=== PATIENT | male | born 1930 | race Caucasian/White ===

== ENCOUNTER 2017-09-29 14:38 | Emergency (ER) | payer OTHER ==
[~2017-09-29 14:38] MED LIST: DIGO125T87 PO; GABA-529 PO; HYDR-3830 PO; WARF-57 PO; [UNRECOGNIZED DRUG - CODE] PO
== END 2017-09-29 16:10 | disposition home or self-care (01) ==
LOC: EDH 14:38
DX: S91.201A Unspecified open wound of right great toe with damage to nail, initial encounter (principal); X58.XXXA Exposure to other specified factors, initial encounter; Y93.89 Activity, other specified; Y92.89 Other specified places as the place of occurrence of the external cause; Y99.8 Other external cause status

== ENCOUNTER 2017-11-11 08:25 | Day surgery (SDC) | payer OTHER ==
[~2017-11-11] VITALS: Ht 172.7 cm; Wt 65.0 kg
[~2017-11-11 08:25] MED LIST changes: +SODIUM CHLORIDE 0.9% 1000ML 1,000 ML IV ONE
[2017-11-11 10:05] VITALS: BP 113/71
[2017-11-11 11:30] VITALS: BP 98/42
== END 2017-11-11 12:20 | disposition home or self-care (01) ==
LOC: DAH 08:25 → ENDO 08:25
PROVIDERS: ATTEND Internal Medicine
DX: K31.819 Angiodysplasia of stomach and duodenum without bleeding (principal); K31.89 Other diseases of stomach and duodenum; D50.9 Iron deficiency anemia, unspecified; K21.9 Gastro-esophageal reflux disease without esophagitis; I48.91 Unspecified atrial fibrillation; M19.90 Unspecified osteoarthritis, unspecified site; Z79.01 Long term (current) use of anticoagulants
CPT/HCPCS: 43235; 93005; A4606; J7030

== ENCOUNTER 2018-04-05 17:28 | Inpatient (IN) | payer OTHER ==
[~2018-04-05] VITALS: Ht 175.3 cm; Wt 59.5 kg
[~2018-04-05 17:28] MED LIST changes: -GABA-529 PO; -SODIUM CHLORIDE 0.9% 1000ML 1,000 ML IV ONE; -[UNRECOGNIZED DRUG - CODE] PO
[2018-04-05 18:14] LABS: BASOPHILS % (AUTO) 1.2 % (0.0-5.0); HEMATOCRIT 32.1 % (42-54); LYMPHOCYTES % (AUTO) 14.3 % (21.0-51.0); MEAN CORPUSCULAR HEMOGLOBIN 30.3 pg (27.0-33.0); MEAN CORPUSCULAR HGB CONC 33.5 g/dL (32.0-36.0); MEAN CORPUSCULAR VOLUME 90.6 fL (79-99); MONOCYTES % (AUTO) 12.4 % (3.0-13.0); NEUTROPHILS % (AUTO) 57.1 % (40.0-77.0); PLATELET COUNT (AUTO) 220 K/uL (130-400); RED BLOOD CELL COUNT(AUTO) 3.55 MIL/uL (4.50-6.20); RED CELL DISTRIBUTION WIDTH 14.3 % (11.0-15.5); WHITE BLOOD COUNT (AUTO) 4.6 K/uL (4.8-10.8)
[2018-04-05 18:25] LABS: CREATININE 1.3 mg/dL (0.5-1.5); POTASSIUM 4.7 mmol/L (3.5-5.1)
[2018-04-05 18:26] LABS: INR 1.29 (0.85-1.15); PARTIAL THROMBOPLASTIN TIME 42.3 SEC (26.3-35.5); PROTHROMBIN TIME 13.5 SEC (9.6-11.6)
[2018-04-05 18:30] LABS: ALBUMIN 2.9 g/dL (3.5-5.0); BILIRUBIN,TOTAL 0.4 mg/dL (0.2-1.0); TOTAL PROTEIN, SERUM 6.2 g/dL (6.0-8.3)
[2018-04-05] MEDS ORDERED: LABETALOL HCL 5 MG/ML 20ML VIAL IV PRN (19:00)
[2018-04-05] MEDS ORDERED: MORPHINE SULFATE 2 MG/ML 1ML SYG IV PRN (19:00)
[2018-04-05] MEDS ORDERED: ONDANSETRON HCL 4 MG/2 ML VIAL IV PRN (19:00)
[2018-04-05] MEDS ORDERED: ACETAMINOPHEN 325 MG TAB PO PRN (19:00)
[2018-04-05 19:06] LABS: APPEARANCE,URINE Clear (CLEAR); BILIRUBIN,URINE Negative (NEGATIVE); COLOR,URINE Yellow (YELLOW); GLUCOSE, URINE (UA) Negative (NEGATIVE); KETONES,URINE Negative (NEGATIVE); LEUKOCYTE ESTERASE ,URINE Negative (NEGATIVE); NITRATE,URINE Negative (NEGATIVE); OCCULT BLOOD,URINE Negative (NEGATIVE); PH,URINE 6.5 (5.0-8.0); PROTEIN,URINE Negative (NEGATIVE)
[2018-04-05] MEDS ORDERED: ENOXAPARIN SODIUM 100 MG/1 ML SQ ONE (19:17)
[2018-04-05] MEDS ORDERED: FAMOTIDINE 20MG TAB 20 MG TAB ONE (19:18)
[2018-04-05 21:54] VITALS: BP 134/81
[2018-04-05 23:00] VITALS: BP 134/81
[2018-04-06 03:00] VITALS: BP 154/90
[2018-04-06 04:09] LABS: HEMATOCRIT 32.7 % (42-54); MEAN CORPUSCULAR HGB CONC 33.2 g/dL (32.0-36.0); MEAN CORPUSCULAR VOLUME 90.3 fL (79-99); PLATELET COUNT (AUTO) 190 K/uL (130-400); RED BLOOD CELL COUNT(AUTO) 3.62 MIL/uL (4.50-6.20); RED CELL DISTRIBUTION WIDTH 14.4 % (11.0-15.5); WHITE BLOOD COUNT (AUTO) 4.3 K/uL (4.8-10.8)
[2018-04-06 04:23] LABS: CREATININE 1.2 mg/dL (0.5-1.5); POTASSIUM 4.4 mmol/L (3.5-5.1)
[2018-04-06 07:31] VITALS: BP 142/80
[2018-04-06] MEDS: ENOXAPARIN SODIUM 80 MG/0.8 ML SQ SCH ×2 (09:50→21:23)
[2018-04-06] MEDS: FAMOTIDINE/PF 20 MG/2 ML VIAL IV SCH ×2 (09:51→21:21)
[2018-04-06 11:30] VITALS: BP 111/67
[2018-04-06 16:11] VITALS: BP 134/83
[2018-04-06] MEDS: WARFARIN SODIUM 5 MG TAB PO SCH (16:23)
[2018-04-06] MEDS ORDERED: SPIR25TA6 PO (17:05)
[2018-04-06] MEDS ORDERED: MAGN250T10 PO (17:05)
[2018-04-06] MEDS ORDERED: CLOT15C TP (17:05)
[2018-04-06] MEDS ORDERED: DIGO125T87 PO (17:05)
[2018-04-06] MEDS ORDERED: OXYB10TA PO (17:05)
[2018-04-06] MEDS ORDERED: DOXY100C2 PO (17:05)
[2018-04-06] MEDS ORDERED: MICO1COM58 TP (17:05)
[2018-04-06] MEDS ORDERED: GABA-529 PO (17:05)
[2018-04-06] MEDS ORDERED: RIVA20TA PO (17:05)
[2018-04-06] MEDS ORDERED: FURO40TA5 PO (17:05)
[2018-04-06 19:17] VITALS: BP 129/73
[2018-04-06 23:20] VITALS: BP 144/75
[2018-04-07 03:34] VITALS: BP 152/86
[2018-04-07 03:52] LABS: INR 1.06 (0.85-1.15); PROTHROMBIN TIME 11.1 SEC (9.6-11.6)
[2018-04-07 07:45] VITALS: BP 143/86
[2018-04-07] MEDS: FAMOTIDINE/PF 20 MG/2 ML VIAL IV SCH ×2 (10:04→21:51)
[2018-04-07] MEDS: ENOXAPARIN SODIUM 80 MG/0.8 ML SQ SCH ×2 (10:05→21:52)
[2018-04-07 10:55] VITALS: BP 109/90
[2018-04-07] MEDS ORDERED: WARFARIN SODIUM 2.5 MG TAB PO SCH (15:00)
[2018-04-07 16:18] VITALS: BP 130/81
[2018-04-07] MEDS: WARFARIN SODIUM 5 MG TAB PO SCH (16:31)
[2018-04-07 19:36] VITALS: BP 134/85
[2018-04-07 23:33] VITALS: BP 133/84
[2018-04-08 03:29] VITALS: BP 136/79
[2018-04-08 03:36] LABS: BASOPHILS % (AUTO) 0.9 % (0.0-5.0); EOSINOPHILS % (AUTO) 9.1 % (0.0-8.0); HEMATOCRIT 38.3 % (42-54); LYMPHOCYTES % (AUTO) 15.9 % (21.0-51.0); MEAN CORPUSCULAR HEMOGLOBIN 29.9 pg (27.0-33.0); MEAN CORPUSCULAR HGB CONC 33.3 g/dL (32.0-36.0); MEAN CORPUSCULAR VOLUME 89.8 fL (79-99); MONOCYTES % (AUTO) 14.2 % (3.0-13.0); NEUTROPHILS % (AUTO) 59.9 % (40.0-77.0); NUCLEATED RED BLOOD CELLS 0.2 % (0.0-0.19); PLATELET COUNT (AUTO) 196 K/uL (130-400); RED BLOOD CELL COUNT(AUTO) 4.27 MIL/uL (4.50-6.20); RED CELL DISTRIBUTION WIDTH 14.2 % (11.0-15.5); WHITE BLOOD COUNT (AUTO) 4.2 K/uL (4.8-10.8)
[2018-04-08 03:47] LABS: INR 1.09 (0.85-1.15); PROTHROMBIN TIME 11.4 SEC (9.6-11.6)
[2018-04-08 03:48] LABS: CREATININE 1.1 mg/dL (0.5-1.5); POTASSIUM 4.5 mmol/L (3.5-5.1)
[2018-04-08 07:50] VITALS: BP 157/74
[2018-04-08] MEDS: FAMOTIDINE/PF 20 MG/2 ML VIAL IV SCH ×2 (08:18→20:56)
[2018-04-08] MEDS: ENOXAPARIN SODIUM 80 MG/0.8 ML SQ SCH ×2 (08:19→20:57)
[2018-04-08 09:44] LABS: INR 1.17 (0.85-1.15); PROTHROMBIN TIME 12.2 SEC (9.6-11.6)
[2018-04-08 11:44] VITALS: BP 148/70
[2018-04-08 16:39] VITALS: BP 150/72
[2018-04-08] MEDS: WARFARIN SODIUM 5 MG TAB PO SCH ×2 (18:24)
[2018-04-08 19:40] VITALS: BP 126/74
[2018-04-08 23:35] VITALS: BP 99/62
[2018-04-09 03:59] VITALS: BP 138/83
[2018-04-09 04:37] LABS: CREATININE 1.2 mg/dL (0.5-1.5); POTASSIUM 4.2 mmol/L (3.5-5.1)
[2018-04-09 04:45] LABS: INR 1.47 (0.85-1.15); PROTHROMBIN TIME 15.3 SEC (9.6-11.6)
[2018-04-09] MEDS: FAMOTIDINE/PF 20 MG/2 ML VIAL IV SCH (07:33)
[2018-04-09] MEDS: WARFARIN SODIUM 5 MG TAB PO SCH (07:33)
[2018-04-09] MEDS: ENOXAPARIN SODIUM 80 MG/0.8 ML SQ SCH (07:34)
[2018-04-09 07:38] VITALS: BP 125/84
[2018-04-09] MEDS ORDERED: WARF-57 PO (11:11)
[2018-04-09 11:25] VITALS: BP 120/60
== END 2018-04-09 12:20 | disposition home or self-care (01) | DRG 300 ==
LOC: EDH 17:28 → EDHIP 18:40 → 2AH 21:21
PROVIDERS: ADMIT Hospitalist; ATTEND Hospitalist
DX: I82.412 Acute embolism and thrombosis of left femoral vein (principal); E44.1 Mild protein-calorie malnutrition; I82.512 Chronic embolism and thrombosis of left femoral vein; I48.2 Chronic atrial fibrillation; K57.30 Diverticulosis of large intestine without perforation or abscess without bleeding; Z79.01 Long term (current) use of anticoagulants; I87.2 Venous insufficiency (chronic) (peripheral); R53.81 Other malaise; Z82.5 Family history of asthma and other chronic lower respiratory diseases; Z82.49 Family history of ischemic heart disease and other diseases of the circulatory system; Z82.3 Family history of stroke; Z83.3 Family history of diabetes mellitus; Z82.0 Family history of epilepsy and other diseases of the nervous system; Z87.891 Personal history of nicotine dependence; Z85.72 Personal history of non-Hodgkin lymphomas
CPT/HCPCS: 36415; 80048; 80053; 81003; 85025; 85027; 85610; 85730; 93005; J1650; J3490

== ENCOUNTER 2018-04-27 09:15 | Inpatient (IN) | payer OTHER ==
[~2018-04-27] VITALS: Ht 175.3 cm; Wt 62.6 kg
[~2018-04-27 09:15] MED LIST changes: +CLOT15C TP; +FURO40TA5 PO; +GABA-529 PO; -HYDR-3830 PO; +MAGN250T10 PO; +MICO1COM58 TP; +OXYB10TA PO; +SPIR25TA6 PO
[2018-04-27] MEDS ORDERED: CEFTRIAXONE SODIUM 1 GM ONE (10:02)
[2018-04-27 10:09] LABS: BASOPHILS % (AUTO) 0.7 % (0.0-5.0); EOSINOPHILS % (AUTO) 6.5 % (0.0-8.0); HEMATOCRIT 31.9 % (42-54); LYMPHOCYTES % (AUTO) 12.5 % (21.0-51.0); MEAN CORPUSCULAR HEMOGLOBIN 29.9 pg (27.0-33.0); MEAN CORPUSCULAR HGB CONC 33.6 g/dL (32.0-36.0); MEAN CORPUSCULAR VOLUME 88.9 fL (79-99); MONOCYTES % (AUTO) 12.6 % (3.0-13.0); NEUTROPHILS % (AUTO) 67.7 % (40.0-77.0); PLATELET COUNT (AUTO) 208 K/uL (130-400); RED BLOOD CELL COUNT(AUTO) 3.59 MIL/uL (4.50-6.20); RED CELL DISTRIBUTION WIDTH 14.9 % (11.0-15.5); WHITE BLOOD COUNT (AUTO) 4.5 K/uL (4.8-10.8)
[2018-04-27 10:16] LABS: CREATININE 1.3 mg/dL (0.5-1.5); POTASSIUM 4.2 mmol/L (3.5-5.1)
[2018-04-27 10:21] LABS: BILIRUBIN,TOTAL 0.5 mg/dL (0.2-1.0); TOTAL PROTEIN, SERUM 6.5 g/dL (6.0-8.3)
[2018-04-27] MEDS ORDERED: VANCOMYCIN 1GM+NS 250ML 250 ML IV SCH (12:30)
[2018-04-27] MEDS: FUROSEMIDE 10 MG/ML 2ML VIAL IV SCH (12:45)
[2018-04-27] MEDS ORDERED: GABAPENTIN 100 MG CAPSULE PO PRN (12:45)
[2018-04-27] MEDS: ZOSYN 3.375GM+NS 50ML 50 ML IV SCH ×2 (13:00→20:24)
[2018-04-27] MEDS: DIGOXIN 125 MCG TABLET PO SCH (16:00)
[2018-04-27] MEDS ORDERED: FUROSEMIDE 10 MG/ML 2ML VIAL ONE (16:25)
[2018-04-27] MEDS ORDERED: ZOSYN 3.375GM+NS 50ML 50 ML IV ONE (16:25)
[2018-04-27] MEDS ORDERED: SODIUM CHLORIDE 0.9% 50 ML IV ONE (16:26)
[2018-04-27 17:35] LABS: INR 1.31 (0.85-1.15); PARTIAL THROMBOPLASTIN TIME 36.6 SEC (26.3-35.5); PROTHROMBIN TIME 13.7 SEC (9.6-11.6)
[2018-04-27] MEDS ORDERED: VANCOMYCIN 1GM+NS 250ML 250 ML IV ONE (17:35)
[2018-04-27] MEDS: ACETAMINOPHEN-CODEINE 300/30MG TAB PO PRN (18:52)
[2018-04-27] MEDS ORDERED: WARFARIN SODIUM 5 MG TAB PO ONE (20:00)
[2018-04-27] MEDS: FAMOTIDINE 20MG TAB 20 MG TAB PO SCH (20:23)
[2018-04-27] MEDS: ENOXAPARIN SODIUM 80 MG/0.8 ML SQ SCH (20:25)
[2018-04-27 20:28] VITALS: BP 123/76
[2018-04-27] MEDS: HYDROCODONE/ACETAMINOPHEN 5/325 MG TAB PO PRN (23:30)
[2018-04-28 00:32] VITALS: BP 112/59
[2018-04-28] MEDS: FUROSEMIDE 10 MG/ML 2ML VIAL IV SCH ×2 (00:42→12:34)
[2018-04-28 04:34] VITALS: BP 119/80
[2018-04-28 05:03] LABS: BASOPHILS % (AUTO) 0.9 % (0.0-5.0); EOSINOPHILS % (AUTO) 13.4 % (0.0-8.0); HEMATOCRIT 31.5 % (42-54); LYMPHOCYTES % (AUTO) 15.2 % (21.0-51.0); MEAN CORPUSCULAR HEMOGLOBIN 29.5 pg (27.0-33.0); MEAN CORPUSCULAR HGB CONC 33.3 g/dL (32.0-36.0); MEAN CORPUSCULAR VOLUME 88.6 fL (79-99); MONOCYTES % (AUTO) 13.3 % (3.0-13.0); NEUTROPHILS % (AUTO) 57.2 % (40.0-77.0); PLATELET COUNT (AUTO) 158 K/uL (130-400); RED BLOOD CELL COUNT(AUTO) 3.56 MIL/uL (4.50-6.20); WHITE BLOOD COUNT (AUTO) 3.4 K/uL (4.8-10.8)
[2018-04-28] MEDS: ZOSYN 3.375GM+NS 50ML 50 ML IV SCH ×3 (05:04→22:29)
[2018-04-28 05:21] LABS: ALBUMIN 2.7 g/dL (3.5-5.0); BILIRUBIN,TOTAL 0.4 mg/dL (0.2-1.0); CREATININE 1.2 mg/dL (0.5-1.5); POTASSIUM 4.1 mmol/L (3.5-5.1); TOTAL PROTEIN, SERUM 5.9 g/dL (6.0-8.3)
[2018-04-28 05:24] LABS: B-TYPE NATRIURETIC PEPTIDE 893 pg/mL (0-100)
[2018-04-28 07:00] VITALS: BP 136/89
[2018-04-28] MEDS ORDERED: ENOXAPARIN SODIUM 40 MG/0.4 ML SYRINGE SQ SCH (09:00)
[2018-04-28] MEDS: FAMOTIDINE 20MG TAB 20 MG TAB PO SCH ×2 (09:26→22:29)
[2018-04-28] MEDS: ENOXAPARIN SODIUM 80 MG/0.8 ML SQ SCH ×2 (09:26→22:30)
[2018-04-28] MEDS: SPIRONOLACTONE 25 MG TAB PO SCH (09:26)
[2018-04-28] MEDS: OXYBUTYNIN 5 MG TAB.SR.24H PO SCH (09:26)
[2018-04-28 11:00] VITALS: BP 124/69
[2018-04-28] MEDS: HYDROCODONE/ACETAMINOPHEN 5/325 MG TAB PO PRN (12:35)
[2018-04-28] MEDS: WARFARIN SODIUM 5 MG TAB PO SCH (15:55)
[2018-04-28] MEDS: DIGOXIN 125 MCG TABLET PO SCH (15:56)
[2018-04-28 16:00] VITALS: BP 109/54
[2018-04-28 20:00] VITALS: BP 118/60
[2018-04-29 00:06] VITALS: BP 124/68
[2018-04-29 04:04] VITALS: BP 133/75
[2018-04-29] MEDS ORDERED: VANCOMYCIN PROTOCOL PER PHARMACY IV SCH (04:45)
[2018-04-29 05:07] LABS: BASOPHILS % (AUTO) 0.9 % (0.0-5.0); EOSINOPHILS % (AUTO) 10.4 % (0.0-8.0); HEMATOCRIT 32.2 % (42-54); LYMPHOCYTES % (AUTO) 12.3 % (21.0-51.0); MEAN CORPUSCULAR HEMOGLOBIN 30.1 pg (27.0-33.0); MEAN CORPUSCULAR HGB CONC 34.4 g/dL (32.0-36.0); MEAN CORPUSCULAR VOLUME 87.5 fL (79-99); MONOCYTES % (AUTO) 10.5 % (3.0-13.0); NEUTROPHILS % (AUTO) 65.9 % (40.0-77.0); PLATELET COUNT (AUTO) 204 K/uL (130-400); RED BLOOD CELL COUNT(AUTO) 3.68 MIL/uL (4.50-6.20); RED CELL DISTRIBUTION WIDTH 14.8 % (11.0-15.5)
[2018-04-29 05:22] LABS: ALBUMIN 2.7 g/dL (3.5-5.0); BILIRUBIN,TOTAL 0.5 mg/dL (0.2-1.0); CREATININE 1.4 mg/dL (0.5-1.5); POTASSIUM 3.9 mmol/L (3.5-5.1); TOTAL PROTEIN, SERUM 6.1 g/dL (6.0-8.3)
[2018-04-29] MEDS: FUROSEMIDE 10 MG/ML 2ML VIAL IV SCH ×2 (06:15→17:35)
[2018-04-29] MEDS: VANCOMYCIN 1GM+NS 250ML 250 ML IV SCH (06:16)
[2018-04-29] MEDS: ZOSYN 3.375GM+NS 50ML 50 ML IV SCH ×3 (06:19→20:02)
[2018-04-29 07:00] VITALS: BP 128/74
[2018-04-29] MEDS: SPIRONOLACTONE 25 MG TAB PO SCH (09:43)
[2018-04-29] MEDS: OXYBUTYNIN 5 MG TAB.SR.24H PO SCH (09:43)
[2018-04-29] MEDS: FAMOTIDINE 20MG TAB 20 MG TAB PO SCH ×2 (09:43→20:00)
[2018-04-29] MEDS: ENOXAPARIN SODIUM 80 MG/0.8 ML SQ SCH ×2 (09:45→20:04)
[2018-04-29] MEDS ORDERED: COMPOUND IV REFRIGERATED 1 EACH IVSOLN MISC PRN (10:15)
[2018-04-29 11:00] VITALS: BP 112/67
[2018-04-29] MEDS: ACETAMINOPHEN-CODEINE 300/30MG TAB PO PRN (11:57)
[2018-04-29 16:00] VITALS: BP 116/68
[2018-04-29] MEDS: DIGOXIN 125 MCG TABLET PO SCH (17:35)
[2018-04-29] MEDS: WARFARIN SODIUM 5 MG TAB PO SCH (17:36)
[2018-04-29 21:08] VITALS: BP 112/65
[2018-04-29 22:39] LABS: APPEARANCE,URINE Clear (CLEAR); BILIRUBIN,URINE Negative (NEGATIVE); COLOR,URINE Yellow (YELLOW); GLUCOSE, URINE (UA) Negative (NEGATIVE); KETONES,URINE Negative (NEGATIVE); LEUKOCYTE ESTERASE ,URINE Negative (NEGATIVE); NITRATE,URINE Negative (NEGATIVE); OCCULT BLOOD,URINE Negative (NEGATIVE); PH,URINE 7.5 (5.0-8.0); PROTEIN,URINE Negative (NEGATIVE); UROBILINOGEN,URINE 0.2 mg/dL (0.2-1.0)
[2018-04-30 01:26] VITALS: BP 133/87
[2018-04-30] MEDS: VANCOMYCIN 1GM+NS 250ML 250 ML IV SCH (05:00)
[2018-04-30] MEDS: ZOSYN 3.375GM+NS 50ML 50 ML IV SCH ×3 (05:05→22:19)
[2018-04-30] MEDS: FUROSEMIDE 10 MG/ML 2ML VIAL IV SCH ×2 (05:05→17:21)
[2018-04-30] MEDS: VANCOMYCIN 750MG + NS 250 ML IV SCH ×2 (05:05)
[2018-04-30 05:43] VITALS: BP 110/80
[2018-04-30 05:47] LABS: EOSINOPHILS % (AUTO) 8.7 % (0.0-8.0); HEMATOCRIT 39.7 % (42-54); LYMPHOCYTES % (AUTO) 13.6 % (21.0-51.0); MEAN CORPUSCULAR HEMOGLOBIN 28.6 pg (27.0-33.0); MEAN CORPUSCULAR HGB CONC 32.6 g/dL (32.0-36.0); MEAN CORPUSCULAR VOLUME 87.8 fL (79-99); MONOCYTES % (AUTO) 13.4 % (3.0-13.0); NEUTROPHILS % (AUTO) 63.3 % (40.0-77.0); NUCLEATED RED BLOOD CELLS 0.1 % (0.0-0.19); PLATELET COUNT (AUTO) 196 K/uL (130-400); RED BLOOD CELL COUNT(AUTO) 4.52 MIL/uL (4.50-6.20); RED CELL DISTRIBUTION WIDTH 14.9 % (11.0-15.5); WHITE BLOOD COUNT (AUTO) 4.4 K/uL (4.8-10.8)
[2018-04-30 06:01] LABS: INR 1.95 (0.85-1.15); PARTIAL THROMBOPLASTIN TIME 50.6 SEC (26.3-35.5); PROTHROMBIN TIME 20.2 SEC (9.6-11.6)
[2018-04-30 06:17] LABS: CREATININE 1.6 mg/dL (0.5-1.5); POTASSIUM 4.4 mmol/L (3.5-5.1)
[2018-04-30 08:00] VITALS: BP 140/73
[2018-04-30] MEDS: FAMOTIDINE 20MG TAB 20 MG TAB PO SCH ×2 (10:26→22:19)
[2018-04-30] MEDS: SPIRONOLACTONE 25 MG TAB PO SCH (10:26)
[2018-04-30] MEDS: OXYBUTYNIN 5 MG TAB.SR.24H PO SCH (10:26)
[2018-04-30] MEDS: ENOXAPARIN SODIUM 80 MG/0.8 ML SQ SCH ×2 (10:27→22:20)
[2018-04-30 11:52] VITALS: BP 122/60
[2018-04-30 16:00] VITALS: BP 134/71
[2018-04-30] MEDS: DIGOXIN 125 MCG TABLET PO SCH (17:21)
[2018-04-30] MEDS: WARFARIN SODIUM 5 MG TAB PO SCH (17:21)
[2018-04-30 20:00] VITALS: BP 122/74
[2018-04-30] MEDS: ACETAMINOPHEN-CODEINE 300/30MG TAB PO PRN (22:20)
[2018-05-01] VITALS: BP 126/86
[2018-05-01 04:01] VITALS: BP 140/80
[2018-05-01] MEDS: VANCOMYCIN 750MG + NS 250 ML IV SCH ×2 (04:51)
[2018-05-01] MEDS: FUROSEMIDE 10 MG/ML 2ML VIAL IV SCH ×2 (04:51→17:00)
[2018-05-01] MEDS: VANCOMYCIN 1GM+NS 250ML 250 ML IV SCH (04:52)
[2018-05-01] MEDS: ZOSYN 3.375GM+NS 50ML 50 ML IV SCH ×2 (04:52→13:22)
[2018-05-01 05:21] LABS: EOSINOPHILS % (AUTO) 8.2 % (0.0-8.0); LYMPHOCYTES % (AUTO) 15.1 % (21.0-51.0); MEAN CORPUSCULAR HEMOGLOBIN 29.3 pg (27.0-33.0); MEAN CORPUSCULAR HGB CONC 33.2 g/dL (32.0-36.0); MEAN CORPUSCULAR VOLUME 88.3 fL (79-99); MONOCYTES % (AUTO) 12.5 % (3.0-13.0); NEUTROPHILS % (AUTO) 63.2 % (40.0-77.0); PLATELET COUNT (AUTO) 214 K/uL (130-400); RED BLOOD CELL COUNT(AUTO) 4.42 MIL/uL (4.50-6.20); RED CELL DISTRIBUTION WIDTH 14.9 % (11.0-15.5); WHITE BLOOD COUNT (AUTO) 4.6 K/uL (4.8-10.8)
[2018-05-01 05:33] LABS: CREATININE 1.5 mg/dL (0.5-1.5); POTASSIUM 3.6 mmol/L (3.5-5.1)
[2018-05-01 07:30] VITALS: BP 114/75
[2018-05-01 09:21] LABS: INR 2.07 (0.85-1.15); PROTHROMBIN TIME 21.4 SEC (9.6-11.6)
[2018-05-01] MEDS: OXYBUTYNIN 5 MG TAB.SR.24H PO SCH (09:31)
[2018-05-01] MEDS: SPIRONOLACTONE 25 MG TAB PO SCH (09:31)
[2018-05-01] MEDS: FAMOTIDINE 20MG TAB 20 MG TAB PO SCH (09:32)
[2018-05-01] MEDS: ENOXAPARIN SODIUM 80 MG/0.8 ML SQ SCH (09:35)
[2018-05-01 11:00] VITALS: BP 120/66
[2018-05-01 16:00] VITALS: BP 103/69
[2018-05-01] MEDS: WARFARIN SODIUM 5 MG TAB PO SCH (17:36)
[2018-05-01] MEDS: DIGOXIN 125 MCG TABLET PO SCH (17:40)
== END 2018-05-01 18:00 | DRG 602 ==
LOC: EDH 09:15 → EDHIP 13:00 → 3BH 18:21
PROVIDERS: ADMIT Internal Medicine; ATTEND Internal Medicine
DX: L03.116 Cellulitis of left lower limb (principal); I50.21 Acute systolic (congestive) heart failure; E44.0 Moderate protein-calorie malnutrition; L97.929 Non-pressure chronic ulcer of unspecified part of left lower leg with unspecified severity; R53.81 Other malaise; D64.9 Anemia, unspecified; I11.0 Hypertensive heart disease with heart failure; I48.91 Unspecified atrial fibrillation; Z79.01 Long term (current) use of anticoagulants; Z79.02 Long term (current) use of antithrombotics/antiplatelets; Z79.2 Long term (current) use of antibiotics; Z83.3 Family history of diabetes mellitus; Z82.5 Family history of asthma and other chronic lower respiratory diseases; Z82.49 Family history of ischemic heart disease and other diseases of the circulatory system; Z82.0 Family history of epilepsy and other diseases of the nervous system; Z82.3 Family history of stroke; Z68.20 Body mass index [BMI] 20.0-20.9, adult
CPT/HCPCS: 36415; 80048; 80053; 81003; 83880; 84484; 85025; 85610; 85730; 87088; 93005; 93925; 93970; 97039; J0696; J1650; J1940; J2543; J3370; J7030

== ENCOUNTER 2018-10-25 09:29 | Emergency (ER) | payer OTHER ==
[2018-10-25] MEDS ORDERED: LIDOCAINE 2%-EPI 1:200,000 20 ML VIAL IJ ONE (09:41)
[2018-10-25] MEDS ORDERED: TETANUS/DIPHTHERIA TOXOID [ADULT] 0.5 ML VIAL IM ONE (10:58)
== END 2018-10-25 15:52 | disposition home or self-care (01) ==
LOC: EDH 09:29
DX: S81.811A Laceration without foreign body, right lower leg, initial encounter (principal); I48.91 Unspecified atrial fibrillation; M19.90 Unspecified osteoarthritis, unspecified site; Z87.891 Personal history of nicotine dependence; Z85.828 Personal history of other malignant neoplasm of skin; Z79.899 Other long term (current) drug therapy; W22.8XXA Striking against or struck by other objects, initial encounter; Y93.89 Activity, other specified; Y92.89 Other specified places as the place of occurrence of the external cause; Y99.8 Other external cause status
CPT/HCPCS: 12002; 90471; 90714; 99283; J3490

== ENCOUNTER 2019-04-28 11:00 | Emergency (ER) | payer OTHER ==
[~2019-04-28 11:00] MED LIST changes: -MICO1COM58 TP; +MICO24CM4 TP; -OXYB10TA PO; +OXYB10TA2 PO
[2019-04-28 11:20] LABS: BASOPHILS % (AUTO) 0.5 % (0.0-5.0); EOSINOPHILS % (AUTO) 1.3 % (0.0-8.0); HEMATOCRIT 35.6 % (42-54); LYMPHOCYTES % (AUTO) 12.5 % (21.0-51.0); MEAN CORPUSCULAR HEMOGLOBIN 29.2 pg (27.0-33.0); MEAN CORPUSCULAR HGB CONC 33.2 g/dL (32.0-36.0); MEAN CORPUSCULAR VOLUME 88.1 fL (79-99); MONOCYTES % (AUTO) 13.6 % (3.0-13.0); NEUTROPHILS % (AUTO) 72.1 % (40.0-77.0); PLATELET COUNT (AUTO) 145 K/uL (130-400); RED BLOOD CELL COUNT(AUTO) 4.04 MIL/uL (4.50-6.20); RED CELL DISTRIBUTION WIDTH 16.5 % (11.0-15.5); WHITE BLOOD COUNT (AUTO) 5.6 K/uL (4.8-10.8)
[2019-04-28 11:30] LABS: CREATININE 1.3 mg/dL (0.5-1.5); POTASSIUM 4.5 mmol/L (3.5-5.1)
[2019-04-28 11:33] LABS: INR 1.69 (0.85-1.15); PARTIAL THROMBOPLASTIN TIME 33.3 SEC (26.3-35.5); PROTHROMBIN TIME 17.4 SEC (9.6-11.6)
[2019-04-28 11:35] LABS: ALBUMIN 3.4 g/dL (3.5-5.0); BILIRUBIN,TOTAL 0.6 mg/dL (0.2-1.0); TOTAL PROTEIN, SERUM 6.9 g/dL (6.0-8.3)
[2019-04-28] MEDS ORDERED: ACETAMINOPHEN 325 MG TAB ONE (13:59)
[2019-04-28] MEDS ORDERED: CEFTRIAXONE SODIUM 1 GM ONE (14:07)
== END 2019-04-28 15:53 | disposition home or self-care (01) ==
LOC: EDH 11:00
DX: S40.012A Contusion of left shoulder, initial encounter (principal); L97.909 Non-pressure chronic ulcer of unspecified part of unspecified lower leg with unspecified severity; L03.311 Cellulitis of abdominal wall; F03.90 Unspecified dementia, unspecified severity, without behavioral disturbance, psychotic disturbance, mood disturbance, and anxiety; I48.91 Unspecified atrial fibrillation; W18.39XA Other fall on same level, initial encounter; Y93.89 Activity, other specified; Y92.89 Other specified places as the place of occurrence of the external cause; Y99.8 Other external cause status
CPT/HCPCS: 36415; 70450; 73030; 80053; 82550; 84484; 85025; 85610; 85730; 93005; 96374; 99285; J0696